=== PATIENT | male | born 1975 | race Caucasian/White ===

== ENCOUNTER 2018-08-06 11:43 | Emergency (ER) | payer OTHER | END 2018-08-06 12:51 | disposition home or self-care (01) | LOC: E/R 11:43 | DX: K64.4 Residual hemorrhoidal skin tags (principal) | CPT/HCPCS: 99284; Z7502 ==

== ENCOUNTER 2018-08-08 15:13 | Emergency (ER) | payer OTHER ==
[2018-08-08] MEDS: ONDANSETRON (ODT) 4 MG TAB ODT (16:01)
[2018-08-08] MEDS: HYDROmorphONE 0.5 MG/0.5 ML SYG IM (16:03)
[2018-08-08] MEDS: TRIMETHOPRIM/SULFAMETHOX (DS) TAB PO (16:42)
[2018-08-08] MEDS: CEPHALEXIN 500 MG CAP PO (16:42)
== END 2018-08-08 16:52 | disposition home or self-care (01) ==
LOC: FTE 15:13
DX: K61.0 Anal abscess (principal)
CPT/HCPCS: 46050; 96372; 99284-25